=== PATIENT | female | born 1955 | race Caucasian/White ===

== ENCOUNTER → 2016-09-05 | Outpatient (CLI) | payer OTHER ==
--- NOTE | 2016-09-05 11:24 | US ---
Right Upper Quadrant Sonogram (Limited Abdominal) Clinical Indications: Right upper quadrant pain. Findings: The visualized pancreas is unremarkable. The aorta tapers normally from 20 to 14 mm. Liver is normal in size, morphology, and echotexture. Portal vein and hepatic veins appear patent. Ga llbladder wall is normal at 1.2 mm. Common bile duct is normal at 1.9 mm. The right kidney measures 4.3 x 3.8 x 9.7 cm. Impression: Normal sonogram of the right upper quadrant of the abdomen.
== END ==
LOC: FIMAGING 10:20
PROVIDERS: ATTEND Family Medicine
DX: R10.11 Right upper quadrant pain (principal)

== ENCOUNTER 2018-07-23 12:51 | Observation (INO) | payer OTHER ==
--- NOTE | 2018-07-23 13:11 | EDPHY ---
H & P Stated Complaint: CP, dizziness Time Seen by Provider: 07/23/18 13:10 - Personal History Current Tetanus/Diphtheria Vaccine: Yes Current Tetanus Diphtheria and Acellular Pertussis (TDAP): Yes - Medical/Surgical History Hx Asthma: No Hx Chronic Respiratory Disease: No Hx Diabetes: No Hx Cardiac Disease: No Hx Renal Disease: No Hx Cirrhosis: No Hx Alcoholism: No Hx HIV/AIDS: No Hx Splenectomy or Spleen Trauma: No Other PMH: denies - Social History Smoking Status: Never smoked Constitutional: Initial Vital Signs Temperature (C) 36.6 C 07/23/18 13:00 Heart Rate 70 07/23/18 13:00 Respiratory Rate 16 07/23/18 13:00 Blood Pressure 175/85 H 07/23/18 13:00 O2 Sat (%) 97 07/23/18 13:00 O2 Delivery Mode Room Air Allergies/Adverse Reactions: No Known Allergies Allergy (Unverified 07/23/18 12:59) Home Medications: Medication Instructions Recorded NK [No Known Home Meds] 07/23/18 Medical Decision Making - Diagnostics Imaging Results: Imaging Impressions Chest X-Ray 07/23/18 13:20 Impression: Mild peribronchial thickening suggesting airways disease/bronchitis. Imaging: I viewed and interpreted images myself ED Course/Re-evaluation: CHIEF COMPLAINT: "I've been getting dizzy a lot lately," chest pain HISTORY OF PRESENT ILLNESS: The patient is a 62 y/o female complaining of progressive dizziness and exertional chest pain over the last few weeks. She runs regularly at least 3 times per week and for the past few runs she's noticed left-sided chest tightness that stops when she ceases exertion. She also describes dizziness over the same time period or longer that has progressively worsened and is particularly bad today. Additionally, she has felt extremely fatigued and generally "exhausted" even while at rest. She continues to have dizziness and a mild headache while lying still during assessment. No dyspnea, vomiting, nausea, abdominal pain, fever, recent illness , or recent trauma. She called her PCP to make an appointment to discuss her dizziness and was referred directly to the ED. She has not seen a PCP recently, but reports she has no significant medical history including hypertension, diabetes, cardiac disease, smoking history, or hyperlipidemia. However, her father had an M1 at age 42 and and her sister had an IL at age 42 that required stenting and medication. She reports multiple siblings have "very bad cholesterol." She does not take a daily aspirin. REVIEW OF SYSTEMS: A comprehensive 10 system review of systems is otherwise negative aside from elements mentioned in the history of present illness and medical decision making. PHYSICAL EXAM: HR, BP, O2 Sat, RR. Temp noted General Appearance: Alert, well hydrated, appropriate, and anxious-appearing. Head: Atraumatic without scalp tenderness or obvious injury Eyes: Pupils equal, round, reactive to light and accommodation, EOMI, no trauma , no injection. Nose: Atraumatic, no rhinorrhea, clear. Throat: There is no erythema or exudates, no lesions, normal tonsils, mucus membranes moist. Neck: Supple, nontender, no lymphadenopathy. Respiratory: No retractions, no distress, no wheezes, and no accessory muscle use. Lungs are clear to auscultation bilaterally. Cardiovascular: Regular rate and rhythm, no murmurs, rubs, or gallops. Good capillary refill all extremities. Gastrointestinal: Abdomen is soft, nontender, non-distended, no masses, no rebound, no guarding, no peritoneal signs. Musculoskeletal: Normal active ROM of all extremities, atraumatic. Neurological: Alert, appropriate, and interactive. The patient has non-focal cranial nerves, motor, sensory, and cerebellar exam. Skin: No rashes, good turgor, no nodules on palpation. Past medical history: Denies Past surgical history: Noncontributory Family history: Sister had M1 age 42 requiring stent and medication, father had M1 age 42 and ; hyperlipidemia in other siblings Social history: Never smoker. Active, runs several times per week. Lives in [place]. . DIAGNOSTICS/PROCEDURES/CRITICAL CARE TIME: The 12 lead EKG was interpreted by myself. Sinus mechanism, no ischemia. See hard copy and/or "tracemaster" electronic copy for interpretation. Chest x-ray: no infiltrate DIFFERENTIAL DIAGNOSIS: The differential diagnosis for the patient's chest pain and dizziness included but was not limited to myocardial ischemia, pulmonary embolus, chest wall pain, pleural inflammation, and pulmonary infectious causes. MEDICAL DECISION MAKING: This is an anxious 62 y/o female with significant family history of CAD who presents with a several-week history of progressive dizziness and fatigue who is now additionally noticing exertional left-sided chest pain. Her exam is unremarkable. Story is concerning for unstable angina vs. ACS as she has essentially been failing her own stress tests for weeks. Plan for standard chest pain work up including IV, labs, EKG, chest x-ray, and likely admission. EKG shows no acute ischemic signs. 1323: Consulted with Dr. Powell, cardiology. She agrees patient will require admission and cath. POC Troponin negative. Spoke with hospitalist service. Dr. Junior accepts admission to the PCU. - Data Points Laboratory Results: Laboratory Results 07/23/18 13:15 07/23/18 13:15 07/23/18 07/23/18 07/23/18 13:17 13:15 13:15 WBC RBC Hgb Hct MCV MCH MCHC RDW Plt Count MPV Neut % (Auto) Lymph % (Auto) Alpine % (Auto) Eos % (Auto) Baso % (Auto) Nucleat RBC Rel Count Absolute Neuts (auto) Absolute Lymphs (auto) Absolute Monos (auto) Absolute Eos (auto) Absolute Basos (auto) Absolute Nucleated RBC Immature Gran % Immature Gran # PT 12.8 SEC SEC (12.0-15.0) INR 0.94 (0.83-1.16) APTT 32.8 SEC SEC (23.0-38.0) Sodium 140 mEq/L mEq/L (135-145) Potassium 4.0 mEq/L mEq/L (3.3-5.0) Chloride 106 mEq/L mEq/L (97-110) Carbon Dioxide 25 mEq/l mEq/l (22-31) Anion Gap 9 mEq/L mEq/L (6-14) BUN 9 mg/dL mg/dL (7-23) Creatinine 0.7 mg/dL mg/dL (0.6-1.0) Estimated GFR > 60 Glucose 111 mg/dL H mg/dL (70-100) Calcium 10.0 mg/dL mg/dL (8.5-10.4) POC Troponin I 0.01 ng/mL ng/mL (0.00-0.08) NT-Pro-B Natriuret Pep 131 pg/mL H pg/mL (0-125) 07/23/18 13:15 WBC 6.54 10^3/uL 10^3/uL (3.80-9.50) RBC 4.76 10^6/uL 10^6/uL (4.18-5.33) Hgb 15.3 g/dL g/dL (12.6-16.3) Hct 44.1 % % (38.0-47.0) MCV 92.6 fL fL (81.5-99.8) MCH 32.1 pg pg (27.9-34.1) MCHC 34.7 g/dL g/dL (32.4-36.7) RDW 11.4 % L % (11.5-15.2) Plt Count 211 10^3/uL 10^3/uL (150-400) MPV 10.3 fL fL (8.7-11.7) Neut % (Auto) 65.1 % % (39.3-74.2) Lymph % (Auto) 24.9 % % (15.0-45.0) Alpine % (Auto) 8.0 % % (4.5-13.0) Eos % (Auto) 0.9 % % (0.6-7.6) Baso % (Auto) 0.9 % % (0.3-1.7) Nucleat RBC Rel Count 0.0 % % (0.0-0.2) Absolute Neuts (auto) 4.26 10^3/uL 10^3/uL (1.70-6.50) Absolute Lymphs (auto) 1.63 10^3/uL 10^3/uL (1.00-3.00) Absolute Monos (auto) 0.52 10^3/uL 10^3/uL (0.30-0.80) Absolute Eos (auto) 0.06 10^3/uL 10^3/uL (0.03-0.40) Absolute Basos (auto) 0.06 10^3/uL 10^3/uL (0.02-0.10) Absolute Nucleated RBC 0.00 10^3/uL 10^3/uL (0-0.01) Immature Gran % 0.2 % % (0.0-1.1) Immature Gran # 0.01 10^3/uL 10^3/uL (0.00-0.10) PT INR APTT Sodium Potassium Chloride Carbon Dioxide Anion Gap BUN Creatinine Estimated GFR Glucose Calcium POC Troponin I NT-Pro-B Natriuret Pep Medications Given: Discontinued Medications Aspirin (Aspirin) 324 mg PO EDNOW ONE Stop: 07/23/18 13:21 Last Admin: 07/23/18 13:49 Dose: 324 mg Aspirin Buffered (Aspirin Ec) 325 mg PO ONCALL ONE Stop: 07/23/18 14:37 Last Admin: 07/23/18 15:02 Dose: 325 mg Diazepam (Valium) 5 mg PO ONCALL ONE Stop: 07/23/18 14:37 Last Admin: 07/23/18 15:02 Dose: 5 mg Diphenhydramine HCl (Benadryl) 25 mg PO ONCALL ONE Stop: 07/23/18 14:37 Last Admin: 07/23/18 15:02 Dose: 25 mg Famotidine (Pepcid) 20 mg PO ONCALL ONE Stop: 07/23/18 14:37 Last Admin: 07/23/18 15:02 Dose: 20 mg Point of Care Test Results: Chemistry 07/23/18 13:17 POC Troponin I 0.01 ng/mL ng/mL (0.00-0.08) Departure - Departure Disposition: [facility] Inpatient Acute Clinical Impression: ACS (acute coronary syndrome) Condition: Fair Referrals: NONE *PRIMARY CARE P,. [Unknown] - Report Scribed for: Junior Marti Report Scribed by: Petra Vaughn Date of Report: 07/23/18 Time of Report: 13:13
[2018-07-23] MEDS ORDERED: ASPIRIN 81 MG CHEWABLE TAB PO ONE (13:20)
[2018-07-23 13:24] LABS: PLATELET COUNT 211 10^3/uL (150-400)
[2018-07-23 13:37] LABS: INR 0.94 (0.83-1.16); PROTIME(PATIENT) 12.8 SEC (12.0-15.0)
--- NOTE | 2018-07-23 14:21 | CPEKG ---
Test Reason : OPEN Blood Pressure : / mmHG Vent. Rate : 061 BPM Atrial Rate : 061 BPM P-R Int : 167 ms QRS Dur : 082 ms QT Int : 435 ms P-R-T Axes : 075 062 004 degrees QTc Int : 439 ms Sinus rhythm Left atrial enlargement Confirmed by Junior Marti ([id number]) on 07/23/2018 2:21:28 PM Referred By: Confirmed By:Junior Marti
--- NOTE | 2018-07-23 14:34 | PDHPUP ---
History & Physical Update H&P update statement: This history and physical update is based on an assessment of the patient which was completed after admission or registration (within 24 hours), but prior to the surgery/procedure. H&P update: H&P reviewed & patient examined, no change in patient's condition since H&P completed
--- NOTE | 2018-07-23 14:35 | PDPROPOC ---
Sedation Plan of Care Sedation Plan of Care: vital signs stable, mental status noted, patient educated of risks, benefits, alternatives, patient can tolerate sedation ASA Classification: ASA 2 Planned drugs: fentanyl, midazolam Mallampati Score: Class 2 Mallampati Reference Image: Patient passed 3-3-2 rule?: Yes
[2018-07-23] MEDS ORDERED: NS 1,000 ML IV ONE (14:36)
[2018-07-23] MEDS ORDERED: DIAZEPAM 5 MG TAB PO ONE (14:36)
[2018-07-23] MEDS ORDERED: ASPIRIN EC 325 MG TAB PO ONE ×2 (14:36→14:38)
[2018-07-23] MEDS ORDERED: FAMOTIDINE 20 MG TAB PO ONE (14:36)
[2018-07-23] MEDS ORDERED: diphenhydrAMINE 25 MG CAP PO ONE ×2 (14:36→14:38)
[2018-07-23] MEDS ORDERED: FAMOTIDINE 20 MG TAB ONE (14:38)
[2018-07-23] MEDS ORDERED: DIAZEPAM 5 MG TAB ONE (14:38)
[2018-07-23] MEDS ORDERED: LIDOCAINE 1% 300 MG/30 ML SDV ONE (15:36)
[2018-07-23] MEDS ORDERED: IOPAMIDOL (ISOVUE-370) 150 ML BTL IV ONE (15:37)
[2018-07-23] MEDS ORDERED: fentaNYL 100 MCG/2 ML INJ ONE (15:37)
[2018-07-23] MEDS ORDERED: MIDAZOLAM 2 MG/2 ML VIAL ONE (15:37)
--- NOTE | 2018-07-23 15:53 | GCON ---
CARDIOLOGY CONSULTATION We are asked by Dr. Marti of the ED to evaluate Ms. Morris for new onset chest pain. HISTORY OF PRESENT ILLNESS: The patient is a 62-year-old female with no significant past medical history. She called her PCP's office today after she started to note chest pain after completion of exertion, as well as increased episodes of dizziness. Additionally, she has been profoundly fatigued, and these have all been changes for her from her baseline health. Over the past few weeks, she will note a chest tightness after completing a 30-minute run. She reports her run is a slow run. There is no associated dyspnea, presyncope, syncope. After she completes her run, she will note a left-sided chest tightness that is moderate in intensity. Symptoms will resolve on their own after about a minute. She denies needing to take any aspirin for relief. Her last episode occurred today. Additionally, she has been noting dizziness. This has been on and off for about 2 years. However, in the past 2 weeks, the episodes are now daily, and it feels like she is just "off kilter," and the edges are getting brighter, and she has tunnel vision with this. She denies any overt syncope. She has not had any associated chest pains, dyspnea, PND, orthopnea, or associated palpitations. In regard to her fatigue, she typically is able to stay up quite late, and now she is no longer able to stay up. Her fatigue is throughout the day. It has not affected her ability to run. She is still able to complete the 30 minutes. Furthermore, she describes a sharp pain below her diaphragm when she is supine. This will radiate to her back and be severe in intensity. Symptoms are very brief but quite intense. She has discussed these symptoms with her friends and they all concluded that these are possibly GI-related symptoms. Typical episodes are once every few months. She did have an episode last night. REVIEW OF SYSTEMS: As per HPI. A complete 10-point review of systems was obtained and is negative, except for what is dictated. FAMILY HISTORY: Father had an MD and at age 42. Sister, who is currently 64, had an MD at age 42. MEDICATIONS: Outpatient medications are none. ALLERGIES: No known drug allergies. SOCIAL HISTORY: The patient is . Her son is present in the room. Patient is a never smoker. She reports 1-2 glasses of wine nightly. PHYSICAL EXAMINATION: VITAL SIGNS: BP of 168/98, heart rate of 59, respirations 18, O2 saturation 96% on room air. GENERAL: She is a very pleasant female in no apparent distress. HEENT: Head is normocephalic, atraumatic. Eyes are without scleral icterus. HEART: Regular rate and rhythm , with a fixed split S2. Carotids without bruit auscultated. LUNGS: Clear to auscultation bilaterally. ABDOMEN: Soft, nontender, nondistended, with normoactive bowel sounds. : No Patel present. SKIN: Warm and dry, without peripheral edema. PSYCH: Normal mood and affect for given situation. NEURO: No focal deficits detected. LABORATORY DATA: BMP with sodium 140, potassium 4, chloride 106, CO2 25, BUN 9 , creatinine 0.7, glucose 111. NT proBNP of 131. Point of care troponin 0.01. CBC with WBC 6.54, hemoglobin 15.3, hematocrit 44.1, platelet count of 211. Twelve-lead ECG personally interpreted demonstrates sinus rhythm with left atrial abnormality. There are diffuse ST-T wave abnormalities. Chest x-ray reviewed, shows mild peribronchial thickening suggestive of airways disease/ bronchitis. I have discussed the patient's care with Dr. Junior Marti. IMPRESSION AND PLAN: The patient is a 62-year-old female with no significant past medical history. She presents with a new onset of exertional chest discomfort. 1. Exertional chest discomfort suggestive of unstable angina. The patient has an ECG that is mildly abnormal, and her troponin is currently negative. We have reviewed options, and patient is agreeable to left heart catheterization for further evaluation. Risks, benefits, and alternatives have been reviewed with her. 2. Dizziness, unclear etiology. She has a fixed split S2 on auscultation of her heart. We will plan an echo in this admission. We will likely need a hospitalist consult for further workup of this. 3. Fatigue. She has no anemia based on labs. We will check a baseline TSH. 4. Deep vein thrombosis prophylaxis. She is low risk. We will not initiate low-molecular weight heparin at this point. 5. Length of stay: She will be admitted to observation for the time being. /[id number]/MODL MTDD
[2018-07-23] MEDS ORDERED: hydrALAZINE 20 MG/ML VIAL ONE (16:43)
--- NOTE | 2018-07-23 16:47 | PDDXCAT ---
Diagnostic Cath Note - . Date: 07/23/18 Welding Instructor: Sherry Indication: Patient w angina/susp CAD, cannot be risk stratified by other means - Procedure Access: right groin Procedure: left heart catheterization, coronary angiography, left ventriculogram - Materials Left Heart Cath size: 6F Left Heart Cath materials: standard multipack (JL4, JR4, pigtail) - Findings-Left Heart Catheterization LM: Normal and bifurcates into the LAD and left circumflex. LAD: The LAD is a large vessel reaching the apex. There is a single branching diagonal that is also a fairly large vessel. No significant disease in the LAD or its branch. LCX: Small vessel without coronary disease. RCA: Dominant vessel. 20-30% midvessel stenosis. EDP: 22 LVEF: 65% Wall motion: Normal - Findings-Right Heart Catheterization AO: 155/86. No Complications: none Estimated blood loss: <50ml Closure method: manual pressure Assessment: Minimal CAD. Normal LVEF Plan: Evaluate for noncardiac sources of chest pain. Patient will be admitted to observation to evaluate fatigue and dizziness. Patient Problems: Problems Problem Status Onset ACS (acute coronary syndrome) Acute
[2018-07-23] MEDS ORDERED: HYDROCODONE/APAP 5/325 TAB PO PRN (16:48)
[2018-07-23] MEDS ORDERED: OXYCODONE/APAP 5/325 TAB PO PRN (16:48)
[2018-07-23] MEDS ORDERED: NITROGLYCERIN 0.4 MG BTL SL PRN (16:48)
[2018-07-23] MEDS ORDERED: ATROPINE SULFATE 1 MG/10 ML SYR IVP PRN (16:48)
[2018-07-23] MEDS ORDERED: ONDANSETRON 4 MG/2 ML VIAL IVP PRN (16:48)
--- NOTE | 2018-07-23 17:14 | ECHO ---
[email or web address] [address] [address] Main: [phone] Fax: Transthoracic Echocardiogram Name: BEAU ALEXANDRA MR#: [id number] Study Date: 07/23/2018 Study Time: 03:01 PM Date of : 1955 Age: 62 year(s) Height: 154.9 cm (61 in.) Weight: 47.63 kg (105 lb.) BSA: 1.44 m2 Gender: Female Examination: Echo Indication: dizziness/cp Image Quality: Adequate Contrast: Requested by: Bridget Barrios BP: 173 mmHg/99 mmHg Heart Rate: Rhythm: Indication: dizziness/cp Procedure Staff Stone Mason: Lesly Chakraborty [facility] Reading Physician: Arianna Powell MD Requesting Provider: Conclusions: Normal size left ventricle. No LV hypertrophy. Normal global systolic LV function. EF is 70 %. No regional wall motion abnormality. Normal diastolic LV function. Mildly dilated right ventricle. Normal RV function. The left atrium is normal in size. Trivial to mild tricuspid valve regurgitation. Right ventricular systolic pressure measures 21mmHg. No pericardial effusion. No prior echo Measurements: Chambers Valvular Assessment AV/MV Valvular Assessment TV/PV Normal Normal Normal Name Value Range Name Value Range Name Value Range Ao Malorie (MM): 2.7 cm (2.2 cm-3.7 AV Vmax: 1.26 m/s (1 m/s-1.7 TR Vmax: 1.98 mm/s ( - ) cm) m/s) TR PGmax: 16 mmHg ( - ) IVSd (2D): 0.7 cm (0.6 cm-1.1 AV maxP mmHg ( - ) syst. PAP: 21 mmHg ( - ) cm) LVOT Vmax: 0.93 m/s (0.7 m/s-1.1 PV Vmax: 0.83 m/s (0.6 m/s-0.9 LVDd (2D): 3.9 cm (3.9 cm-5.3 m/s) m/s) cm) MV E Vmax: 0.69 m/s ( - ) PV PGmax: 3 mmHg ( - ) LVDs (2D): 2.2 cm (2.1 cm-4 MV A Vmax: 0.47 m/s ( - ) cm) MV E/A: 1.47 ( - ) LVPWd (2D): 0.8 cm ( - ) LVEF (BP): 70 % (>=55 %) RVDd(2D): 2.9 cm (1.9 cm-3.8 cmmm) Patient: BEAU ALEXANDRA Study Date: 07/23/2018 Page 1 of 2 03:01 PM Continued Measurements: Chambers Valvular Assessment AV/MV Valvular Assessment TV/PV Name Value Name Value Name Value LADs: 2.3 cm MV DecTime: 232 m/s CVP (est.): 5 mmHg LADs Lon.9 cm MV E/E' Septal: 12.70 LA Area: 12.4 cm2 MV E/E' Lateral: 10.60 LA Volume: 27 ml LA Volume Index: 18.8 ml/m2 TAPSE: 2.3 cm RA Area: 11.2 cm2 Additional Vessels Name Value Ao Ascendin.4 cm Findings: Left Ventricle: Normal size left ventricle. No LV hypertrophy. Normal global systolic LV function. EF is 70 %. No regional wall motion abnormality. Normal diastolic LV function. Right Ventricle: Mildly dilated right ventricle. Normal RV function. Left Atrium: The left atrium is normal in size. Right Atrium: The right atrium is normal in size. Mitral Valve: The mitral valve is normal in appearance and function. Trivial mitral valve regurgitation. No mitral stenosis is present. Aortic Valve: The aortic valve is tri-leaflet and functions normally. There is no aortic valve regurgitation. No aortic valve stenosis is present. Tricuspid Valve: The tricuspid valve is normal in appearance and function. Trivial to mild tricuspid valve regurgitation. Right ventricular systolic pressure measures 21mmHg. The pulmonary artery pressure is normal. Pulmonic Valve: Pulmonary valve not well visualized. Trivial pulmonic valve regurgitation. Aorta: Normal size aortic root measuring 2.7 cm. Normal size ascending aorta measuring 2.4 cm. IVC: Normal size and course of the IVC. Pericardium: No pericardial effusion. (No Signature Object) Patient: BEAU ALEXANDRA Study Date: 07/23/2018 Page 2 of 2 03:01 PM [id number]
--- NOTE | 2018-07-23 21:45 | GHP ---
DATE OF ADMISSION: 07/23/2018 CHIEF COMPLAINT: Fatigue, chest pain. HISTORY OF PRESENT ILLNESS: This is a 62-year-old female who is quite healthy at baseline. Over the last couple weeks, she has been having significant fatigue. She has also had a little bit of chest pain at the end of exercise at the left side, left upper chest, that resolves with rest. She admits to significant dizziness. She has had vertigo in the past, but this feels a little bit different. T he edges of her vision are a little bit brighter, and she gets some tunnel vision. This type of dizz iness does not feel like vertigo, which is her baseline. She admits to some worsening GERD over the last few years. She has some sleep disturbances as well. Does not necessarily have any decreased ex ercise tolerance with her fatigue. Patient called her primary care doctor who then referred her to the emergency department. There, the re was a concern for unstable angina, and she actually went for an angiogram. This showed mild nonob structive coronary disease. Patient denies any weight loss, fevers or chills, upper respiratory trac t infection symptoms, dysuria, abdominal symptoms like diarrhea or constipation. REVIEW OF SYSTEMS: 10-point review of systems was obtained and other than stated was negative. PAST MEDICAL HISTORY: Chronic vertigo. MEDICATIONS: None. SOCIAL HISTORY: . No smoking. Does drink 1-2 glasses of wine nightly. FAMILY HISTORY: Significant history for coronary disease at early ages. PHYSICAL EXAMINATION: VITAL SIGNS: Afebrile, blood pressure is 107/62, heart rate 57, oxygen satura tion 94% on room air. GENERAL: Patient is well developed, no apparent distress. HEENT: Nonicteric sclerae. Extraocular muscles intact. Moist mucous membranes. NECK: Supple. No thyromegaly. MATA GS: Good effort. Clear to auscultation bilaterally. CARDIOVASCULAR: Regular rate, rhythm. No mur murs, rubs, or gallops. ABDOMEN: Positive bowel sounds. Soft, nontender, nondistended. No hepatos plenomegaly. EXTREMITIES: No clubbing, cyanosis, or edema. SKIN: Without rash, dry, intact. NEUR O: Alert and oriented x3. Moving all 4 extremities equally. PSYCH: Normal affect. LABS: Chemistry and CBC and thyroid are all normal. Echocardiogram shows a normal EF with no wall m otion abnormalities. ASSESSMENT: 62-year-old female presenting with 2 weeks of significant fatigue along with some slight exertional chest pain and dizziness. PLAN: 1. Fatigue and dizziness, unsure of the cause. There are no real clues in her blood work. She does have a significant component of dizziness which is not quite vertigo but associated with some vision changes. Because of this, we will go ahead and get an MRI of her brain as we are not finding any ot her causes. If this is negative, will probably discharge and see how symptoms evolve outpatient. 2. Exertional chest pain: Patient's catheterization is normal. /[id number]/MODL
[2018-07-24 08:02] VITALS: BP 112/71
[2018-07-24] MEDS ORDERED: ATORVASTATIN CALCIUM 20 MG TAB PO SCH (10:15)
[2018-07-24] MEDS ORDERED: GADOBUTROL 10 ML VIAL IVP ONE (10:32)
--- NOTE | 2018-07-24 11:40 | PDCARPN ---
Cardiology Progress Note Chief Complaint: Patient states she would like to go home. Assessment/Plan: Assessment: 62-year-old female with no significant past medical history, but family history of CAD at early onset age, admitted 07/23/2018 for episode of chest tightness. Did undergo echocardiogram on 07/23/2018, noting normal LV size, normal LV systolic function, EF of 70%, no regional wall motion abnormalities, mildly dilated RV, normal RV function, trivial to mild TR, RVSP of 21 mm Hg. Due to concerns of potential ACS, underwent cardiac catheterization later that day by Dr. Powell, mild CAD, non flow limiting. LVEF 65% with no wall motion abnormalities. Fasting lipid panel drawn 07/23 showing total cholesterol of 214 , triglycerides 95, LDL 92, HDL 103. 07/24/2018: Patient reports no further episodes of chest pain or pressure overnight. Denies of any shortness of breath. Right groin site, catheter insertion site, with mild ecchymosis approximately 50 cent point size over puncture site. No redness, swelling, drainage, or significant hematoma noted. Normal CMS checks to both lower extremities. +2 dorsal pedal pulses bilateral. Continues cardiac monitoring showing sinus rhythm with no malignant arrhythmias or pauses. Plan: 1. Chest pain: Patient reports no further episodes. Coronary catheterization showing mild non flow limiting CAD. Recommend patient start aspirin therapy at 81 mg p.o. Q.day. We did discuss secondary risk prevention with statin therapy , in which she declines. We have discussed the importance of lifestyle modification. 2. Fatigue and dizziness: Laboratory studies showed no significant clue to causing her blood work. [facility] has scheduled her for an MRI later today. Will defer to them for further recommendations. Potentially patient will be discharged home today, post catheterization discharge instructions went over with the patient and her . We will plan for her to follow up in our office in approximately 7-10 day for evaluation of her insertion site. I have contacted our office to call her on Thursday, to schedule an appointment. 07/24/18 11:39 Subjective: Patient reports no further episodes of chest pain or pressure. She does report mild pain at insertion catheterization site, denies of any shortness of breath, orthopnea, PND, palpitations, lightheadedness, near-syncope or syncopal events. Reviewed/Discussed With: other (Dr Bush) Objective: Vital Signs (8 Hrs) Temp Pulse Resp BP Pulse Ox 12/01/18 08:01 36.7 C 61 18 112/71 94 07/24/18 04:00 36.9 C 63 16 111/60 94 Intake/Output (24 Hrs) 07/23/18 07/24/18 07/25/18 05:59 05:59 05:59 Intake Total 1350 394 Output Total 675 Balance 675 394 Intake: Oral (ml) 800 IV Intake (ml) 550 Packed Red Blood Cells ( 394 ml) Output: Urine (ml) 675 Bedpan 400 Toilet 275 Other: Weight 47.627 kg Intake Quantity Yes Sufficient Number of Voids Toilet 1 Result Diagrams: 07/23/18 13:15 07/23/18 13:15 - Physical Exam Constitutional: WDWN, healthy appearing Cardiovascular: regular rate and rhythm, no murmurs, pulses symmetric bilat, No jugular vein distention Peripheral Pulses: 2+: carotid (R), carotid (L), dorsalis-pedis (R), dorsalis- pedis (L) Respiratory: clear to auscultate bilat, no crackles, no wheezes Gastrointestinal: normoactive bowel sounds Skin: no edema, other (Right groin site, catheter insertion site, with small ecchymosis around puncture site, no redness, swelling, drainage, or hematoma.) Neurologic: AAOx3 Psychiatric: cooperative, interactive, following commands ICD10 Worksheet Patient Problems: Problems Problem Status Onset ACS (acute coronary syndrome) Acute
--- NOTE | 2018-07-25 04:33 | GDS ---
DISCHARGE DIAGNOSES: 1. Chest pain, noncardiac. 2. Nonobstructive coronary artery disease. 3. Dizziness. HISTORY: Cathy is a 62-year-old female, who presented with new onset chest pain, which was a con cerning history for possible unstable angina. She had a mildly abnormal EKG. Cardiology was consult ed and discussed options with her. Decision was made to move forward with a left heart catheterizati on. She has a very concerning family history of coronary artery disease with her father having ND an d dying at age 42. Her sister also had an ND at age 42. Her cardiac catheterization showed some nonobstructive coronary artery disease with 30% RCA lesion. This should be managed medically. She also complained of severe dizziness and a brain MRI was obtained that was unremarkable. DISCHARGE MEDICATIONS: Please see computerized record for full detailed list. New medications: 1. Aspirin 81 mg p.o. daily. 2. Lipitor 20 mg p.o. daily. ADDITIONAL DISCHARGE INSTRUCTIONS: 1. Recommend follow up with primary care in 2 weeks for further discussion of fatigue. 2. Standard groin precautions and follow up with Dr. Arianna Powell of Cardiology. Patient was seen and examined by me on the day of discharge. /[id number]/MODL
[2018-07-25] MEDS ORDERED: ASPIRIN EC 81 MG TAB PO SCH (09:00)
== END 2018-07-24 15:57 | disposition home or self-care (01) ==
LOC: F2W 18:10
PROVIDERS: ADMIT Internal Medicine; ATTEND Internal Medicine
DX: R07.9 Chest pain, unspecified (principal); I25.10 Atherosclerotic heart disease of native coronary artery without angina pectoris; R42 Dizziness and giddiness; R53.83 Other fatigue; R94.31 Abnormal electrocardiogram [ECG] [EKG]; K21.9 Gastro-esophageal reflux disease without esophagitis; Z82.49 Family history of ischemic heart disease and other diseases of the circulatory system
CPT/HCPCS: 70553; 71046; 93005; 93306; 93458; 99285; G0378; 84484-PO; A9585; J0360; J1644; J2250; J3010; Q9967

== ENCOUNTER → 2018-08-04 | Outpatient (CLI) | payer OTHER | LOC: FLAB 11:50 | PROVIDERS: ATTEND Nurse Practitioner Family | DX: R10.30 Lower abdominal pain, unspecified (principal); L72.9 Follicular cyst of the skin and subcutaneous tissue, unspecified ==

== ENCOUNTER → 2018-09-08 | Outpatient (CLI) | payer OTHER | LOC: FIMAGING 12:45 | PROVIDERS: ATTEND Family Medicine | DX: Z13.820 Encounter for screening for osteoporosis (principal); M85.89 Other specified disorders of bone density and structure, multiple sites ==